=== PATIENT | male | born 2000 | race Caucasian/White ===

== ENCOUNTER 2024-06-18 15:22 | Emergency (ER) | payer OTHER ==
[2024-06-18 15:34] VITALS: BP 121/60; PULSE 71; RESP 18; TEMP 98; BMI 29.5
[2024-06-18] MEDS ORDERED: ACETAMINOPHEN INJECTION 100 ML ONE (16:37)
[2024-06-18] MEDS ORDERED: FAMOTIDINE 20 MG/50 ML IVPB 20 MG/50 ML MG IVPB ONE (16:37)
[2024-06-18 16:43] LABS: BASO % 0.4 % (0-2.0); HEMATOCRIT 44.3 % (35.4-49); HEMOGLOBIN 14.9 GM/dL (11.7-16.9); LYMPH % 28.7 % (8-40); MCH 29.2 pg (25.7-33.7); MCHC 33.6 g/dl (32.0-35.9); MEAN PLT VOLUME 8.7 fl (7.5-11.1); MONO % 8.3 % (3.8-10.2); NEUT % 60.6 % (42.8-82.8); PLATELET COUNT 255 10^3/uL (134-434); RBC 5.09 M/mm3 (4.00-5.60); RDW 12.7 % (11.9-15.9); WHITE BLOOD COUNT 8.8 K/mm3 (4.0-10.0)
[2024-06-18] MEDS: ACETAMINOPHEN 1000 MG/100 ML BAG IVPB ONE (16:44)
[2024-06-18] MEDS: FAMOTIDINE 20 MG/50 ML IVPB 20 MG/50 ML MG IVPB ONE (16:45)
[2024-06-18 16:50] LABS: INR 1.05 (0.83-1.09); PROTHROMBIN TIME (PATIENT) 11.4 SEC (9.7-13.0)
[2024-06-18 16:52] LABS: ACTIVATED PTT 34.3 SECONDS (25.2-36.5)
[2024-06-18 17:01] LABS: POTASSIUM 3.8 mmol/L (3.5-5.1)
[2024-06-18 17:03] LABS: CALCIUM 9.7 mg/dL (8.5-10.1)
[2024-06-18 17:04] LABS: ALBUMIN 4.2 g/dl (3.4-5.0); BLOOD UREA NITROGEN 18.8 mg/dL (7-18)
[2024-06-18 17:07] LABS: CREATININE 1.2 mg/dL (0.55-1.3)
[2024-06-18 17:09] LABS: BILIRUBIN,TOTAL 0.8 mg/dL (0.2-1); TOT PROT 7.3 g/dl (6.4-8.2)
== END 2024-06-18 18:50 | disposition home or self-care (01) ==
LOC: JER 15:22
PROC: 3E033GC Introduction of Other Therapeutic Substance into Peripheral Vein, Percutaneous Approach (ICD-10-PCS; principal; 2024-06-18)
PROC: 3E033NZ Introduction of Analgesics, Hypnotics, Sedatives into Peripheral Vein, Percutaneous Approach (ICD-10-PCS; 2024-06-18)
DX: R07.9 Chest pain, unspecified (principal); R00.2 Palpitations; M54.6 Pain in thoracic spine; M79.10 Myalgia, unspecified site; R53.1 Weakness; Z20.822 Contact with and (suspected) exposure to COVID-19
CPT/HCPCS: 0241U-QW; 36415; 71046-TC-FY; 80053; 84439; 84443; 84484; 85025; 85610; 85730; 93005; 93010; 99285-25; J0131